=== PATIENT | male | born 1955 | race African-American/Black ===

== ENCOUNTER 2022-06-17 17:51 | Inpatient (IN) | payer MEDICARE, OTHER ==
[~2022-06-17] VITALS: Ht 177.8 cm; Wt 74.2 kg
[2022-06-17] MEDS ORDERED: ONDANSETRON HCL 4MG/2ML INJ IV STA (18:21)
[2022-06-17] MEDS ORDERED: MORPHINE SULFATE 4 MG/ML CPJ (NOT FOR IM USE) IV STA (18:21)
[2022-06-17] MEDS ORDERED: PANTOPRAZOLE SODIUM 40 MG/VIAL IV STA (18:21)
[2022-06-17] MEDS ORDERED: SODIUM CHLORIDE 0.9% 1,000 ML IV ONE (18:30)
[2022-06-17 19:36] LABS: HEMATOCRIT. 39.7 % (42.0-52.0); HEMOGLOBIN. 13.4 g/dL (14.0-18.0); MEAN CORPUSCULAR HEMOGLOBIN 29.1 pg (28.0-32.0); MEAN CORPUSCULAR VOLUME 86.4 fL (80.0-94.0); MEAN PLATELET VOLUME 9.1 fl (7.4-10.4); PLATELET 239 x1000/uL (130-400); RED CELL DISTRIBUTION WIDTH 14.4 % (11.6-14.6)
[2022-06-17 19:46] LABS: INR 1.2; PROTHROMBIN TIME 12.5 sec (9.6-11.0)
[2022-06-17 19:48] LABS: CHLORIDE 107 mEq/L (98-107)
[2022-06-17 20:01] LABS: PLATELET ESTIMATE NORMAL
[2022-06-17 20:05] LABS: ETHANOL BLOOD < 10 mg/dL
[2022-06-17] MEDS ORDERED: AZITHROMYCIN 500 MG in DEXT 5% WATER 250 ML IV SCH (20:30)
[2022-06-17] MEDS ORDERED: CEFTRIAXONE 1GM PREMIX 50 ML IV NR (20:30)
[2022-06-17] MEDS ORDERED: METRONIDAZOLE 500 MG PREMIX 100 ML IV NR (20:30)
[2022-06-17] MEDS ORDERED: SODIUM CHLORIDE 0.9% 1000ML BAG (SEPSIS BOLUS) IV ONE (20:30)
[2022-06-17] MEDS ORDERED: AZITHROMYCIN 500MG/250ML 250 ML IV NR (20:45)
[2022-06-17] MEDS ORDERED: MORPHINE SULFATE 4 MG/ML CPJ (NOT FOR IM USE) IV NR (20:45)
[2022-06-17] MEDS ORDERED: PANTOPRAZOLE SODIUM 40 MG/VIAL IV NR (20:45)
[2022-06-17] MEDS ORDERED: ONDANSETRON HCL 4MG/2ML INJ IV NR (20:45)
[2022-06-18] MEDS ORDERED: ONDANSETRON HCL 4MG/2ML INJ IV PRN (01:45)
[2022-06-18] MEDS ORDERED: ACETAMINOPHEN 325MG TABLET PO PRN (01:45)
[2022-06-18] MEDS ORDERED: IPRATROPIUM/ALBUTEROL 0.5-3(2.5)MG/3ML NEB HHN PRN (01:45)
[2022-06-18] MEDS ORDERED: DOCUSATE SODIUM 100MG CAPSULE PO PRN (01:45)
[2022-06-18] MEDS ORDERED: CLONIDINE 0.1MG TABLET PO PRN (01:45)
[2022-06-18] MEDS ORDERED: GUAIFENESIN 200MG/10ML SUGAR FREE UDC PO PRN (01:45)
[2022-06-18] MEDS ORDERED: MVI, ADULT NO.1 10 ML, FOLIC ACID 1 MG, THIAMINE HCL 100 MG in SODIUM CHLORIDE 0.45% 1,... IV SCH ×4 (03:00)
[2022-06-18] MEDS ORDERED: CEFTRIAXONE 1GM PREMIX 50 ML IV NR (04:45)
[2022-06-18 10:06] VITALS: BP 153/90
[2022-06-18 10:17] VITALS: BP 153/90
[2022-06-18] MEDS ORDERED: LEVO100T9 PO (10:22)
[2022-06-18 11:43] LABS: HEMOGLOBIN. 13.2 g/dL (14.0-18.0); MEAN CORPUSCULAR HEMOGLOBIN 28.5 pg (28.0-32.0); MEAN CORPUSCULAR VOLUME 86.5 fL (80.0-94.0); MEAN PLATELET VOLUME 8.9 fl (7.4-10.4); PLATELET 235 x1000/uL (130-400); RED BLOOD CELL COUNT 4.62 mill/uL (4.7-6.1); RED CELL DISTRIBUTION WIDTH 14.5 % (11.6-14.6)
[2022-06-18] MEDS: LEVOTHYROXINE SODIUM 100MCG TABLET PO SCH (11:45)
[2022-06-18 12:01] LABS: CHLORIDE 108 mEq/L (98-107); HDL CHOLESTEROL 59 mg/dL (40-59); LDL CHOLESTEROL 59 mg/dL (5-100); T4 FREE 1.38 ng/dL (0.76-1.46)
[2022-06-18 12:06] VITALS: BP 132/94
[2022-06-18] MEDS: DEXT 5%/0.9% NACL 1,000 ML IV SCH (13:16)
[2022-06-18] MEDS: ENOXAPARIN 40MG/0.4ML SYR SUBCUT SCH (13:24)
[2022-06-18 16:00] VITALS: BP 123/83
[2022-06-18 19:42] LABS: CLARITY URINE CLEAR (CLEAR); COLOR URINE DARK YELLOW (YELLOW); KETONES URINE TRACE (NEGATIVE); LEUKOCYTE ESTERASE URINE NEGATIVE (NEGATIVE); NITRITE URINE NEGATIVE (NEGATIVE); OCCULT BLOOD URINE TRACE (NEGATIVE); PROTEIN URINE 1+ (NEGATIVE); SPECIFIC GRAVITY URINE 1.021 (1.005-1.030)
[2022-06-18 20:00] VITALS: BP 127/87
[2022-06-18] MEDS: AZITHROMYCIN 250 MG in DEXT 5% WATER 250 ML IV SCH (20:25)
[2022-06-19] VITALS: BP 122/82
[2022-06-19] MEDS: DEXT 5%/0.9% NACL 1,000 ML IV SCH ×2 (02:41→14:48)
[2022-06-19 04:00] VITALS: BP 135/95
[2022-06-19] MEDS: CEFTRIAXONE 1,000 MG in DEXTROSE 5% WATER 50 ML IV SCH (04:36)
[2022-06-19] MEDS ORDERED: CEFTRIAXONE 1,000 MG in DEXTROSE 5% WATER 50 ML IV SCH (06:00)
[2022-06-19] MEDS: LEVOTHYROXINE SODIUM 100MCG TABLET PO SCH (06:25)
[2022-06-19 07:44] LABS: PLATELET ESTIMATE NORMAL
[2022-06-19 08:00] VITALS: BP 143/97
[2022-06-19] MEDS: ENOXAPARIN 40MG/0.4ML SYR SUBCUT SCH (09:14)
[2022-06-19 12:00] VITALS: BP 143/97
[2022-06-19 16:00] VITALS: BP 146/99
[2022-06-19 17:12] LABS: BASOPHILS % 0.4 % (0.0-2.0); EOSINOPHILS % 1.4 % (0.0-5.0); HEMATOCRIT. 37.6 % (42.0-52.0); HEMOGLOBIN. 12.6 g/dL (14.0-18.0); LYMPHOCYTES % 16.7 % (20.0-50.0); MEAN CORPUSCULAR HEMOGLOBIN 28.9 pg (28.0-32.0); MEAN CORPUSCULAR VOLUME 86.5 fL (80.0-94.0); MEAN PLATELET VOLUME 9.3 fl (7.4-10.4); MONOCYTES % 12.3 % (2.0-8.0); NEUTROPHILS % 69.2 % (40.0-76.0); PLATELET 254 x1000/uL (130-400); RED BLOOD CELL COUNT 4.35 mill/uL (4.7-6.1); RED CELL DISTRIBUTION WIDTH 14.5 % (11.6-14.6)
[2022-06-19 20:00] VITALS: BP 128/86
[2022-06-19] MEDS: AZITHROMYCIN 250 MG in DEXT 5% WATER 250 ML IV SCH (22:36)
[2022-06-20] VITALS: BP 131/86
[2022-06-20 04:00] VITALS: BP 130/80
[2022-06-20] MEDS: CEFTRIAXONE 1,000 MG in DEXTROSE 5% WATER 50 ML IV SCH (05:16)
[2022-06-20] MEDS: DEXT 5%/0.9% NACL 1,000 ML IV SCH (05:16)
[2022-06-20] MEDS: LEVOTHYROXINE SODIUM 100MCG TABLET PO SCH (06:33)
[2022-06-20 07:46] LABS: BASOPHILS % 0.7 % (0.0-2.0); EOSINOPHILS % 2.5 % (0.0-5.0); HEMATOCRIT. 37.3 % (42.0-52.0); HEMOGLOBIN. 12.3 g/dL (14.0-18.0); LYMPHOCYTES % 19.8 % (20.0-50.0); MEAN CORPUSCULAR HEMOGLOBIN 28.4 pg (28.0-32.0); MEAN CORPUSCULAR VOLUME 86.4 fL (80.0-94.0); MEAN PLATELET VOLUME 9.5 fl (7.4-10.4); MONOCYTES % 13.9 % (2.0-8.0); NEUTROPHILS % 63.1 % (40.0-76.0); PLATELET 249 x1000/uL (130-400); RED BLOOD CELL COUNT 4.32 mill/uL (4.7-6.1); RED CELL DISTRIBUTION WIDTH 14.5 % (11.6-14.6)
[2022-06-20 08:00] VITALS: BP 134/85
[2022-06-20 08:05] LABS: CHLORIDE 109 mEq/L (98-107)
[2022-06-20] MEDS: ENOXAPARIN 40MG/0.4ML SYR SUBCUT SCH (08:58)
[2022-06-20 12:00] VITALS: BP 133/88
[2022-06-20 12:11] VITALS: BP 134/85
== END 2022-06-20 15:44 | disposition home or self-care (01) | DRG 871 ==
LOC: ER 17:51 → MICUSO 22:51 → 3WST 06-18 09:36
PROVIDERS: ADMIT Hospitalist; ATTEND Hospitalist
DX: A40.3 Sepsis due to Streptococcus pneumoniae (principal); G92.8 Other toxic encephalopathy; J18.9 Pneumonia, unspecified organism; N39.0 Urinary tract infection, site not specified; K56.7 Ileus, unspecified; E03.9 Hypothyroidism, unspecified; I10 Essential (primary) hypertension; Z86.73 Personal history of transient ischemic attack (TIA), and cerebral infarction without residual deficits; Z95.1 Presence of aortocoronary bypass graft; I25.10 Atherosclerotic heart disease of native coronary artery without angina pectoris
CPT/HCPCS: 36415; 71045; 74176; 80053; 80061; 80305; 80320; 81003; 83605; 83735; 84145; 84439; 84443; 84481; 85025; 87070; 87077; 87186; 93005; 93970; 97162; 99291; C9113; J0456; J0696; J1650; J2270; J2405; J3411; J3490; J7030; J7042; J7060; G0480